=== PATIENT | female | born 1985 | race Caucasian/White ===

== ENCOUNTER 2017-10-24 16:29 | Emergency (ER) | payer OTHER ==
[~2017-10-24] VITALS: Ht 160 cm; Wt 165.1 kg
[~2017-10-24 16:29] MED LIST: ACCUNEB SO1.25 MG/1 INH; ADVAIR HFA115 MCG/21 INH; AMOXICILLIN 50500 M1 PO; AMOXICILLIN500 M1 PO; AMOXICILLIN875 MG PO; AUGMENTIN 500-1 EACH PO; AVELOX 400 MG400 MG PO; BACTRIM DS TAB1 EAC1 PO; BACTRIM DS TAB1 EACH PO; BIRTH CONTROL; BUTALB-APAP-CA1 EACH PO; CELEXA; CIPRO250 M1 PO; CIPRO500 MG PO; CIPROFLOXACIN500 M1 PO; CLEOCIN HCL150 MG PO; FIORICET 50-301 EACH PO; FLEXERIL PO; FUTURO RESTORI1 EACH MC; GLUCOPHAGE500 MG PO; HYDROCODONE-AP1 EAC6 PO; HYDROXYZINE HCL25 M1 PO; IBUPROFEN 800800 M1 PO; IMDUR 30 MG TAB30 M1 PO; KLOR-CON; LEVALBUTER1.25 MG/0. INH; LEVOTHYROXIN0.125 M1 PO; LEXAPRO 10 MG T10 M1 PO; LIDOCAINE VISC100 M1 SWISH&SPIT; MACROBID 100 M100 M1 PO; MAXZIDE-25 MG1 EACH PO; MEDROLDOSEPACK PO; METFORMIN HCL500 MG PO; NYSTATIN 100,0015 G1 TOP; NYSTATIN 100,0015 G1 TP; ONDANSETRON HCL4 M2 PO; PENICILLIN VK500 M1 PO; PENICILLIN VK500 MG PO; PERCOCET; PERCOCET 5-3251 EACH PO; PERCOCET PO; PHENERGAN 25 MG25 M1 PO; PREDNISONE 20 M20 M1 PO; PROAIR HFA8.5 GM IH; PROAIR HFA8.5 GM INH; PROMETHAZINE-D120 ML PO; PROVENTIL HFA6.7 G1 INH; ROBAXIN 750 MG750 MG PO; ROBAXIN500 MG PO; SYNTHROID25 MCG PO; TESSALON PERLE100 MG PO; TRAMADOL 50 MG50 MG PO; ULTRAM 50MG TAB50 MG PO; VENTOLIN HFA 1818 GM INH; VIBRAMYCIN 100100 M2 PO; VISTARIL 25 MG25 M1 OR; VISTARIL 25 MG25 M1 PO; ZANTAC 150MG T150 M1 PO; ZOFRAN4 MG PO; ZOLOFT25 MG PO; ZPAK PO; ZYRTEC 10 MG TA10 MG PO; [UNRECOGNIZED DRUG - REMARK]
[2017-10-24] MEDS ORDERED: ZOLOFT25 MG PO (16:50)
[2017-10-24] MEDS ORDERED: PRENATAL (16:51)
[2017-10-24] MEDS ORDERED: PENICILLIN VK250 MG PO (16:55)
[2017-10-24] MEDS ORDERED: ULTRAM 50MG TAB50 MG PO (16:56)
[2017-10-24 17:17] VITALS: BP 115/79
== END 2017-10-24 17:17 | disposition home or self-care (01) ==
LOC: M.ERS 16:29
DX: K04.7 Periapical abscess without sinus (principal); J45.909 Unspecified asthma, uncomplicated; E03.9 Hypothyroidism, unspecified; E66.9 Obesity, unspecified; Z87.440 Personal history of urinary (tract) infections; Z88.8 Allergy status to other drugs, medicaments and biological substances; Z88.5 Allergy status to narcotic agent; Z88.6 Allergy status to analgesic agent; Z88.1 Allergy status to other antibiotic agents

== ENCOUNTER 2017-10-26 10:12 | Emergency (ER) | payer OTHER ==
[~2017-10-26] VITALS: Ht 160 cm; Wt 165.1 kg
[~2017-10-26 10:12] MED LIST changes: +PENICILLIN VK250 MG PO; +PRENATAL
[2017-10-26] MEDS ORDERED: KEFLEX500 M1 PO (10:33)
[2017-10-26 10:40] VITALS: BP 156/82
== END 2017-10-26 10:41 | disposition home or self-care (01) ==
LOC: M.ERS 10:12
DX: T36.0X5A Adverse effect of penicillins, initial encounter (principal); K08.89 Other specified disorders of teeth and supporting structures; J45.909 Unspecified asthma, uncomplicated; E03.9 Hypothyroidism, unspecified; Z88.8 Allergy status to other drugs, medicaments and biological substances; Z88.0 Allergy status to penicillin; Z88.5 Allergy status to narcotic agent; Z88.1 Allergy status to other antibiotic agents; Y92.89 Other specified places as the place of occurrence of the external cause

== ENCOUNTER 2017-11-13 21:33 | Emergency (ER) | payer OTHER ==
[~2017-11-13] VITALS: Ht 160 cm; Wt 170.6 kg
[~2017-11-13 21:33] MED LIST changes: +KEFLEX500 M1 PO
[2017-11-13] MEDS ORDERED: VISTARIL50 MG PO (21:48)
[2017-11-13] MEDS ORDERED: CLARITIN10 M2 PO (22:04)
[2017-11-13 22:28] VITALS: BP 132/84
== END 2017-11-13 22:30 | disposition home or self-care (01) ==
LOC: M.ERS 21:33
DX: R21 Rash and other nonspecific skin eruption (principal); J45.909 Unspecified asthma, uncomplicated; E03.9 Hypothyroidism, unspecified; E66.9 Obesity, unspecified; Z87.440 Personal history of urinary (tract) infections; Z68.44 Body mass index [BMI] 60.0-69.9, adult; Z88.0 Allergy status to penicillin; Z88.5 Allergy status to narcotic agent; Z88.1 Allergy status to other antibiotic agents; Z88.8 Allergy status to other drugs, medicaments and biological substances

== ENCOUNTER 2017-11-26 18:36 | Emergency (ER) | payer OTHER ==
[~2017-11-26] VITALS: Ht 157.5 cm; Wt 167.8 kg
[~2017-11-26 18:36] MED LIST changes: +CLARITIN10 M2 PO; +VISTARIL50 MG PO
[2017-11-26 19:02] LABS: ABSOLUTE BASOPHILS 0.1 thou/uL (0.0-0.2); ABSOLUTE EOSINOPHILS 0.1 thou/uL (0.0-0.7); ABSOLUTE LYMPHOCYTES 2.8 thou/uL (0.8-5.3); ABSOLUTE MONOCYTES 0.7 thou/uL (0.0-1.2); ABSOLUTE NEUTROPHILS 9.7 thou/uL (1.6-8.1); BASOPHILS 0.5 %; EOSINOPHILS 0.6 %; HEMOGLOBIN 13.1 gm/dL (12.0-15.0); LYMPHOCYTES 20.6 %; MCH 26.3 pg (26.0-34.0); MCHC 32.8 g/dL (28.0-37.0); MCV 80.3 fL (80.0-100.0); MONOCYTES 5.5 %; MPV 8.3 fl. (7.2-11.1); NUCLEATED RBCS 0 /100WBC; PLATELET COUNT* 261 thou/uL (150-400); POLYS 72.8 %; RBC 4.98 mil/uL (4.20-5.00); RDW-CV 16.8 % (10.5-14.5); WBC 13.4 thou/uL (4.0-11.0)
[2017-11-26 19:06] LABS: URINE BILIRUBIN NEGATIVE (Negative); URINE BLOOD 3+ (Negative); URINE CLARITY SL CLOUDY; URINE COLOR YELLOW; URINE GLUCOSE-RANDOM NEGATIVE (Negative); URINE KETONES NEGATIVE (Negative); URINE LEUKOCYTES-REFLEX NEGATIVE (Negative); URINE NITRITE-REFLEX NEGATIVE (Negative); URINE PROTEIN TRACE (Negative); URINE SPECIFIC GRAVITY 1.025 (1.005-1.030); URINE UROBILINOGEN 0.2 E.U./dl (0.2-1.0)
[2017-11-26 19:12] LABS: SQUAMOUS >10 Many /LPF (0-3)
[2017-11-26 19:12] LABS: CALCIUM 9.6 mg/dL (8.5-10.1); POTASSIUM 3.8 mmol/L (3.5-5.1)
[2017-11-26 19:13] LABS: URINE RBC >20 Many /HPF (0-2); URINE WBC-REFLEX 0-5 Rare /HPF (0-5)
[2017-11-26 19:14] LABS: CASTS None Seen /LPF (None Seen); CRYSTALS None Seen /LPF (None Seen)
[2017-11-26 19:17] LABS: ALBUMIN 3.5 g/dL (3.4-5.0); TOTAL BILIRUBIN 0.6 mg/dL (<0.1-1.0)
[2017-11-26 20:58] VITALS: BP 125/68
== END 2017-11-26 21:05 | disposition home or self-care (01) ==
LOC: M.ERS 18:36
PROVIDERS: Physician Assistant
DX: R10.11 Right upper quadrant pain (principal); R10.13 Epigastric pain; J45.909 Unspecified asthma, uncomplicated; E03.9 Hypothyroidism, unspecified; E66.9 Obesity, unspecified; Z87.440 Personal history of urinary (tract) infections; Z68.44 Body mass index [BMI] 60.0-69.9, adult; Z88.6 Allergy status to analgesic agent; Z88.0 Allergy status to penicillin; Z88.8 Allergy status to other drugs, medicaments and biological substances; Z88.5 Allergy status to narcotic agent; Z88.1 Allergy status to other antibiotic agents

== ENCOUNTER 2017-12-12 13:20 | Emergency (ER) | payer OTHER, MEDICAID ==
[~2017-12-12] VITALS: Ht 162.6 cm; Wt 165.1 kg
[2017-12-12] MEDS ORDERED: REXULTI0.25 MG PO (13:31)
[2017-12-12 13:57] LABS: ABSOLUTE LYMPHOCYTES 2.2 thou/uL (0.8-5.3); ABSOLUTE NEUTROPHILS 8.4 thou/uL (1.6-8.1); BASOPHILS 0.4 %; EOSINOPHILS 0.4 %; HEMOGLOBIN 12.5 gm/dL (12.0-15.0); LYMPHOCYTES 18.9 %; MCH 27.2 pg (26.0-34.0); MCHC 32.8 g/dL (28.0-37.0); MCV 82.9 fL (80.0-100.0); MONOCYTES 8.7 %; MPV 8.4 fl. (7.2-11.1); NUCLEATED RBCS 0 /100WBC; PLATELET COUNT* 216 thou/uL (150-400); POLYS 71.6 %; RBC 4.58 mil/uL (4.20-5.00); WBC 11.8 thou/uL (4.0-11.0)
[2017-12-12 14:07] LABS: ANION GAP 8 mmol/L (7-16); BUN 8 mg/dL (7-18); CALCIUM 8.9 mg/dL (8.5-10.1); CHLORIDE 102 mmol/L (98-107); CO2 30 mmol/L (21-32); CREATININE 0.8 mg/dL (0.6-1.3); GLUCOSE 95 mg/dL (70-99); POTASSIUM 3.4 mmol/L (3.5-5.1); SODIUM 140 mmol/L (136-145)
[2017-12-12 14:09] LABS: APTT 25.9 Seconds (25.0-31.3)
[2017-12-12 14:23] LABS: ALBUMIN 3.1 g/dL (3.4-5.0); ALKALINE PHOSPHATASE 75 U/L (46-116); CK-MB MASS < 0.5 ng/mL (<0.5-3.6); LIPASE 112 U/L (73-393); NT-PRO BRAIN NAT PEPTIDE 75 pg/mL (<300); SGOT 21 U/L (15-37); SGPT 35 U/L (30-65); TOTAL BILIRUBIN 0.4 mg/dL (<0.1-1.0); TOTAL PROTEIN 7.1 g/dL (6.4-8.2); TROPONIN-I LEVEL <0.06 ng/mL (<0.06)
[2017-12-12 14:43] VITALS: BP 120/76
--- NOTE | 2017-12-13 14:27 | EKG ---
[place] [address] ELECTROCARDIOGRAM REPORT Name: RENEMILLIE Room: [facility]#: [id number] Admission: 12/12/17 Attend Phys: Discharge: 12/12/17 Date of : 83 Report #: [id number] THIS REPORT FOR: //name// [facility] ED Test Date: 2017-12-12 Test Time: 13:26:34 Pat Name: MILLIE RENE Department: Room: Gender: F Food Preparation Supervisor: GRISELDA : 1985 Requested By: Scott Lubin Order Number: [id number] MD: Evan Morales Measurements Intervals [place] Rate: 80 P: 44 VT: 146 QRS: 27 QRSD: 95 T: 30 QT: 359 QTc: 415 Interpretive Statements Sinus rhythm Compared to ECG 05/05/2017 13:55:33 No significant changes Electronically Signed On 12-13-2017 14:27:01 CDT by Evan Morales [email or web address] <ELECTRONICALLY SIGNED> By: Evan Morales MD, [facility] 12/13/17 1427 D: [id number] Evan Morales MD, FAC /EPI
== END 2017-12-12 14:44 | disposition home or self-care (01) ==
LOC: M.ERS 13:20
PROVIDERS: Family Medicine
DX: R07.89 Other chest pain (principal); J45.909 Unspecified asthma, uncomplicated; E03.9 Hypothyroidism, unspecified; E66.9 Obesity, unspecified; Z87.440 Personal history of urinary (tract) infections; Z88.6 Allergy status to analgesic agent; Z88.0 Allergy status to penicillin; Z88.5 Allergy status to narcotic agent; Z88.1 Allergy status to other antibiotic agents; Z68.44 Body mass index [BMI] 60.0-69.9, adult

== ENCOUNTER 2017-12-29 12:59 | Emergency (ER) | payer OTHER, MEDICAID ==
[~2017-12-29] VITALS: Ht 160 cm; Wt 165.1 kg
[~2017-12-29 12:59] MED LIST changes: +REXULTI0.25 MG PO
[2017-12-29 13:20] LABS: URINE BILIRUBIN NEGATIVE (Negative); URINE BLOOD 3+ (Negative); URINE CLARITY CLEAR; URINE COLOR YELLOW; URINE GLUCOSE-RANDOM NEGATIVE (Negative); URINE KETONES NEGATIVE (Negative); URINE LEUKOCYTES-REFLEX NEGATIVE (Negative); URINE NITRITE-REFLEX NEGATIVE (Negative); URINE PROTEIN TRACE (Negative); URINE UROBILINOGEN 0.2 E.U./dl (0.2-1.0)
[2017-12-29 13:29] LABS: SQUAMOUS 0-3 Few /LPF (0-3)
[2017-12-29 13:30] LABS: BACTERIA-REFLEX None Seen /HPF (None Seen); CASTS None Seen /LPF (None Seen); CRYSTALS None Seen /LPF (None Seen); URINE RBC >20 Many /HPF (0-2); URINE WBC-REFLEX None Seen /HPF (0-5)
[2017-12-29 13:42] LABS: ABSOLUTE MONOCYTES 0.5 thou/uL (0.0-1.2); ABSOLUTE NEUTROPHILS 7.7 thou/uL (1.6-8.1); BASOPHILS 0.4 %; EOSINOPHILS 0.4 %; HEMATOCRIT 37.5 % (37.0-47.0); HEMOGLOBIN 12.6 gm/dL (12.0-15.0); LYMPHOCYTES 19.6 %; MCH 28.5 pg (26.0-34.0); MCHC 33.5 g/dL (28.0-37.0); MCV 85.2 fL (80.0-100.0); MONOCYTES 5.2 %; MPV 8.3 fl. (7.2-11.1); NUCLEATED RBCS 0 /100WBC; PLATELET COUNT* 206 thou/uL (150-400); POLYS 74.4 %; RDW-CV 21.1 % (10.5-14.5); WBC 10.4 thou/uL (4.0-11.0)
[2017-12-29 14:20] VITALS: BP 124/82
[2017-12-29 14:57] LABS: PLATELET ESTIMATE ADEQUATE
[2017-12-29 14:58] LABS: ANISOCYTOSIS 2+; LARGE PLATELETS OCCASIONAL
== END 2017-12-29 14:23 | disposition home or self-care (01) ==
LOC: M.ERS 12:59
PROVIDERS: Nurse Practitioner Family
DX: N93.8 Other specified abnormal uterine and vaginal bleeding (principal); J45.909 Unspecified asthma, uncomplicated; E03.9 Hypothyroidism, unspecified; E66.9 Obesity, unspecified; Z87.440 Personal history of urinary (tract) infections; Z88.8 Allergy status to other drugs, medicaments and biological substances; Z88.0 Allergy status to penicillin; Z88.6 Allergy status to analgesic agent; Z88.5 Allergy status to narcotic agent; Z88.1 Allergy status to other antibiotic agents

== ENCOUNTER 2018-01-30 19:16 | Emergency (ER) | payer OTHER, MEDICAID ==
[~2018-01-30] VITALS: Ht 157.5 cm; Wt 164.2 kg
[2018-01-30 19:49] LABS: URINE BILIRUBIN NEGATIVE (Negative); URINE BLOOD 3+ (Negative); URINE CLARITY CLEAR; URINE COLOR YELLOW; URINE GLUCOSE-RANDOM NEGATIVE (Negative); URINE KETONES NEGATIVE (Negative); URINE LEUKOCYTES-REFLEX TRACE (Negative); URINE NITRITE-REFLEX NEGATIVE (Negative); URINE PROTEIN NEGATIVE (Negative); URINE UROBILINOGEN 0.2 E.U./dl (0.2-1.0)
[2018-01-30 19:56] LABS: BACTERIA-REFLEX None Seen /HPF (None Seen); SQUAMOUS >10 Many /LPF (0-3); URINE RBC 0-2 Rare /HPF (0-2); URINE WBC-REFLEX 0-5 Rare /HPF (0-5)
[2018-01-30 19:57] LABS: CASTS None Seen /LPF (None Seen); CRYSTALS None Seen /LPF (None Seen)
[2018-01-30 20:10] LABS: ABSOLUTE BASOPHILS 0.1 thou/uL (0.0-0.2); ABSOLUTE EOSINOPHILS 0.1 thou/uL (0.0-0.7); ABSOLUTE LYMPHOCYTES 2.4 thou/uL (0.8-5.3); ABSOLUTE MONOCYTES 0.9 thou/uL (0.0-1.2); ABSOLUTE NEUTROPHILS 8.6 thou/uL (1.6-8.1); BASOPHILS 0.7 %; EOSINOPHILS 0.4 %; HEMATOCRIT 40.7 % (37.0-47.0); HEMOGLOBIN 13.7 gm/dL (12.0-15.0); LYMPHOCYTES 19.8 %; MCHC 33.7 g/dL (28.0-37.0); MCV 86.1 fL (80.0-100.0); MONOCYTES 7.6 %; MPV 8.6 fl. (7.2-11.1); NUCLEATED RBCS 0 /100WBC; PLATELET COUNT* 252 thou/uL (150-400); POLYS 71.5 %; RBC 4.73 mil/uL (4.20-5.00); RDW-CV 17.6 % (10.5-14.5)
[2018-01-30 20:17] LABS: CREATININE 1.1 mg/dL (0.6-1.3); POTASSIUM 3.8 mmol/L (3.5-5.1)
[2018-01-30 20:54] VITALS: BP 132/82
== END 2018-01-30 20:54 | disposition home or self-care (01) ==
LOC: M.ERS 19:16
PROVIDERS: Emergency Medicine
DX: N92.6 Irregular menstruation, unspecified (principal); J45.909 Unspecified asthma, uncomplicated; E03.9 Hypothyroidism, unspecified; E66.9 Obesity, unspecified; Z87.440 Personal history of urinary (tract) infections; Z88.6 Allergy status to analgesic agent; Z88.8 Allergy status to other drugs, medicaments and biological substances; Z88.0 Allergy status to penicillin; Z88.1 Allergy status to other antibiotic agents; Z88.5 Allergy status to narcotic agent

== ENCOUNTER 2018-02-04 17:24 | Emergency (ER) | payer OTHER, MEDICAID ==
[~2018-02-04] VITALS: Ht 157.5 cm; Wt 163.3 kg
[2018-02-04 18:23] VITALS: BP 143/69
== END 2018-02-04 18:24 | disposition home or self-care (01) ==
LOC: M.ERS 17:24
DX: S90.32XA Contusion of left foot, initial encounter (principal); J45.909 Unspecified asthma, uncomplicated; E03.9 Hypothyroidism, unspecified; E66.9 Obesity, unspecified; Z68.44 Body mass index [BMI] 60.0-69.9, adult; Z88.5 Allergy status to narcotic agent; Z88.1 Allergy status to other antibiotic agents; Z88.0 Allergy status to penicillin; X58.XXXA Exposure to other specified factors, initial encounter; Y93.89 Activity, other specified; Y92.89 Other specified places as the place of occurrence of the external cause; Y99.8 Other external cause status

== ENCOUNTER 2018-03-21 19:37 | Emergency (ER) | payer OTHER, MEDICAID ==
[~2018-03-21] VITALS: Ht 157.5 cm; Wt 158.5 kg
[2018-03-21 20:42] LABS: URINE BLOOD TRACE (Negative); URINE CLARITY SL CLOUDY; URINE COLOR YELLOW; URINE GLUCOSE-RANDOM NEGATIVE (Negative); URINE KETONES TRACE (Negative); URINE LEUKOCYTES 2+ (Negative); URINE NITRITE NEGATIVE (Negative); URINE PROTEIN 1+ (Negative); URINE SPECIFIC GRAVITY 1.025 (1.005-1.030)
[2018-03-21 20:44] LABS: URINE BILIRUBIN 2+ (Negative)
[2018-03-21 20:46] LABS: ICTOTEST (BILI CONFIRMATORY) Negative (Negative)
[2018-03-21 20:48] LABS: SQUAMOUS >10 Many /LPF (0-3)
[2018-03-21 20:49] LABS: MUCUS >6 Heavy strn/LPF (None Seen)
[2018-03-21 20:50] LABS: CASTS None Seen /LPF (None Seen); CRYSTALS None Seen /LPF (None Seen); URINE WBC 6-15 Few /HPF (0-5)
[2018-03-21 20:51] LABS: URINE RBC 0-2 Rare /HPF (0-2)
[2018-03-21 20:56] LABS: ABSOLUTE BASOPHILS 0.1 thou/uL (0.0-0.2); ABSOLUTE EOSINOPHILS 0.1 thou/uL (0.0-0.7); ABSOLUTE LYMPHOCYTES 2.5 thou/uL (0.8-5.3); ABSOLUTE MONOCYTES 0.9 thou/uL (0.0-1.2); ABSOLUTE NEUTROPHILS 5.9 thou/uL (1.6-8.1); BASOPHILS 1.1 %; EOSINOPHILS 0.9 %; HEMATOCRIT 39.9 % (37.0-47.0); HEMOGLOBIN 13.7 gm/dL (12.0-15.0); LYMPHOCYTES 26.4 %; MCH 30.4 pg (26.0-34.0); MCHC 34.3 g/dL (28.0-37.0); MCV 88.4 fL (80.0-100.0); MONOCYTES 9.4 %; MPV 8.9 fl. (7.2-11.1); NUCLEATED RBCS 0 /100WBC; PLATELET COUNT* 222 thou/uL (150-400); POLYS 62.2 %; RBC 4.51 mil/uL (4.20-5.00); RDW-CV 13.6 % (10.5-14.5); WBC 9.5 thou/uL (4.0-11.0)
[2018-03-21 21:01] LABS: POTASSIUM 3.6 mmol/L (3.5-5.1)
[2018-03-21 21:06] LABS: ALBUMIN 3.1 g/dL (3.4-5.0); TOTAL BILIRUBIN 1.1 mg/dL (<0.1-1.0)
[2018-03-21] MEDS ORDERED: BACTRIM DS TAB1 EACH PO (23:07)
[2018-03-21 23:30] VITALS: BP 130/74
== END 2018-03-21 23:32 | disposition home or self-care (01) ==
LOC: M.ERS 19:37
PROVIDERS: Physician Assistant
DX: N39.0 Urinary tract infection, site not specified (principal); J45.909 Unspecified asthma, uncomplicated; E03.9 Hypothyroidism, unspecified; E66.9 Obesity, unspecified; Z68.44 Body mass index [BMI] 60.0-69.9, adult; Z88.0 Allergy status to penicillin; Z88.1 Allergy status to other antibiotic agents; Z88.5 Allergy status to narcotic agent; Z88.8 Allergy status to other drugs, medicaments and biological substances

== ENCOUNTER 2018-03-27 19:43 | Emergency (ER) | payer OTHER, MEDICAID ==
[~2018-03-27] VITALS: Ht 157.5 cm; Wt 154.2 kg
[2018-03-27 20:19] LABS: ABSOLUTE BASOPHILS 0.1 thou/uL (0.0-0.2); ABSOLUTE EOSINOPHILS 0.1 thou/uL (0.0-0.7); ABSOLUTE LYMPHOCYTES 2.1 thou/uL (0.8-5.3); ABSOLUTE MONOCYTES 0.6 thou/uL (0.0-1.2); BASOPHILS 0.8 %; EOSINOPHILS 0.9 %; HEMATOCRIT 41.7 % (37.0-47.0); LYMPHOCYTES 24.3 %; MCH 29.7 pg (26.0-34.0); MCHC 33.5 g/dL (28.0-37.0); MCV 88.8 fL (80.0-100.0); MONOCYTES 6.4 %; NUCLEATED RBCS 0 /100WBC; PLATELET COUNT* 244 thou/uL (150-400); POLYS 67.6 %; RDW-CV 13.2 % (10.5-14.5); WBC 8.8 thou/uL (4.0-11.0)
[2018-03-27 20:20] LABS: URINE BILIRUBIN NEGATIVE (Negative); URINE BLOOD 3+ (Negative); URINE CLARITY CLEAR; URINE COLOR YELLOW; URINE GLUCOSE-RANDOM NEGATIVE (Negative); URINE KETONES NEGATIVE (Negative); URINE LEUKOCYTES-REFLEX NEGATIVE (Negative); URINE NITRITE-REFLEX NEGATIVE (Negative); URINE PROTEIN NEGATIVE (Negative); URINE SPECIFIC GRAVITY <= 1.005 (1.005-1.030); URINE UROBILINOGEN 0.2 E.U./dl (0.2-1.0)
[2018-03-27 20:25] LABS: CASTS None Seen /LPF (None Seen); CRYSTALS None Seen /LPF (None Seen); MUCUS None Seen strn/LPF (None Seen); SQUAMOUS >10 Many /LPF (0-3)
[2018-03-27 20:27] LABS: BACTERIA-REFLEX None Seen /HPF (None Seen); URINE RBC 3-10 Few /HPF (0-2); URINE WBC-REFLEX None Seen /HPF (0-5)
[2018-03-27 20:30] LABS: CALCIUM 9.5 mg/dL (8.5-10.1)
[2018-03-27 20:32] LABS: ACETAMINOPHEN < 2 ug/mL (10-30); ALCOHOL < 10 mg/dL (<10); AMP/METHAMP Negative (Negative); BARBITURATES Negative (Negative); BENZODIAZEPINES Negative (Negative); COCAINE Negative (Negative); METHADONE Negative (Negative); OPIATES Negative (Negative); PCP Negative (Negative); THC Negative (Negative)
[2018-03-27 20:33] LABS: SALICYLATE < 2.8 mg/dL (2.8-20.0)
[2018-03-27 20:35] LABS: ALBUMIN 3.4 g/dL (3.4-5.0); TOTAL BILIRUBIN 0.9 mg/dL (<0.1-1.0); TOTAL PROTEIN 7.6 g/dL (6.4-8.2)
[2018-03-27 22:10] VITALS: BP 138/94
== END 2018-03-27 22:10 | disposition home or self-care (01) ==
LOC: M.ERS 19:43
PROVIDERS: Emergency Medicine
DX: R45.851 Suicidal ideations (principal); J45.909 Unspecified asthma, uncomplicated; E03.9 Hypothyroidism, unspecified; E66.9 Obesity, unspecified; Z68.44 Body mass index [BMI] 60.0-69.9, adult; Z88.0 Allergy status to penicillin; Z88.5 Allergy status to narcotic agent; Z88.1 Allergy status to other antibiotic agents; Z88.8 Allergy status to other drugs, medicaments and biological substances

== ENCOUNTER 2018-04-07 16:27 | Emergency (ER) | payer OTHER, MEDICAID ==
[~2018-04-07] VITALS: Ht 160 cm; Wt 152.4 kg
[2018-04-07 17:51] VITALS: BP 142/98
== END 2018-04-07 17:52 | disposition home or self-care (01) ==
LOC: M.ERS 16:27
DX: S80.11XA Contusion of right lower leg, initial encounter (principal); J45.909 Unspecified asthma, uncomplicated; E03.9 Hypothyroidism, unspecified; E66.9 Obesity, unspecified; Z68.43 Body mass index [BMI] 50.0-59.9, adult; Z87.440 Personal history of urinary (tract) infections; Z88.0 Allergy status to penicillin; Z88.1 Allergy status to other antibiotic agents; Z88.5 Allergy status to narcotic agent; Z88.8 Allergy status to other drugs, medicaments and biological substances; X58.XXXA Exposure to other specified factors, initial encounter; Y93.89 Activity, other specified; Y92.89 Other specified places as the place of occurrence of the external cause; Y99.8 Other external cause status

== ENCOUNTER 2018-04-15 11:12 | Emergency (ER) | payer OTHER, MEDICAID ==
[~2018-04-15] VITALS: Ht 165.1 cm; Wt 104.3 kg
[2018-04-15 12:42] VITALS: BP 143/80
== END 2018-04-15 12:43 | disposition home or self-care (01) ==
LOC: M.ERS 11:12
DX: S63.501A Unspecified sprain of right wrist, initial encounter (principal); J45.909 Unspecified asthma, uncomplicated; E03.9 Hypothyroidism, unspecified; E66.9 Obesity, unspecified; Z68.38 Body mass index [BMI] 38.0-38.9, adult; Z87.440 Personal history of urinary (tract) infections; Z88.0 Allergy status to penicillin; Z88.1 Allergy status to other antibiotic agents; Z88.5 Allergy status to narcotic agent; Z88.8 Allergy status to other drugs, medicaments and biological substances; W18.39XA Other fall on same level, initial encounter; Y93.89 Activity, other specified; Y92.89 Other specified places as the place of occurrence of the external cause; Y99.8 Other external cause status

== ENCOUNTER 2018-07-13 13:57 | Emergency (ER) | payer OTHER, MEDICAID ==
[~2018-07-13] VITALS: Ht 160 cm; Wt 140.6 kg
[2018-07-13] MEDS ORDERED: IBUPROFEN 800800 M1 PO (14:54)
[2018-07-13] MEDS ORDERED: PHENERGAN 25 MG25 M1 PO (14:55)
[2018-07-13 15:07] VITALS: BP 140/62
== END 2018-07-13 15:08 | disposition home or self-care (01) ==
LOC: M.ERS 13:57
DX: S09.8XXA Other specified injuries of head, initial encounter (principal); J45.909 Unspecified asthma, uncomplicated; E03.9 Hypothyroidism, unspecified; E66.9 Obesity, unspecified; Z68.43 Body mass index [BMI] 50.0-59.9, adult; Z87.440 Personal history of urinary (tract) infections; Z88.1 Allergy status to other antibiotic agents; Z88.0 Allergy status to penicillin; Z88.5 Allergy status to narcotic agent; Z88.8 Allergy status to other drugs, medicaments and biological substances; V49.69XA Unspecified car occupant injured in collision with other motor vehicles in traffic accident, initial encounter; Y93.89 Activity, other specified; Y92.89 Other specified places as the place of occurrence of the external cause; Y99.8 Other external cause status

== ENCOUNTER 2018-09-18 20:26 | Emergency (ER) | payer OTHER ==
[~2018-09-18] VITALS: Ht 160 cm; Wt 129.7 kg
[2018-09-18] MEDS ORDERED: HYDROCHLOROTHIAZIDE (20:39)
[2018-09-18 20:50] LABS: URINE BILIRUBIN NEGATIVE (Negative); URINE BLOOD NEGATIVE (Negative); URINE CLARITY CLEAR; URINE COLOR YELLOW; URINE GLUCOSE-RANDOM NEGATIVE (Negative); URINE KETONES NEGATIVE (Negative); URINE NITRITE-REFLEX NEGATIVE (Negative); URINE PROTEIN NEGATIVE (Negative); URINE UROBILINOGEN >= 8.0 E.U./dl (0.2-1.0)
[2018-09-18 20:52] LABS: URINE LEUKOCYTES-REFLEX 2+ (Negative)
[2018-09-18 21:03] LABS: MUCUS None Seen strn/LPF (None Seen); SQUAMOUS 4-10 Moderate /LPF (0-3)
[2018-09-18 21:04] LABS: CASTS None Seen /LPF (None Seen); URINE WBC-REFLEX 6-15 Few /HPF (0-5)
[2018-09-18 21:05] LABS: BACTERIA-REFLEX 1-9 Few /HPF (None Seen); CRYSTALS None Seen /LPF (None Seen); URINE RBC None Seen /HPF (0-2)
[2018-09-18 21:58] LABS: ABSOLUTE BASOPHILS 0.1 thou/uL (0.0-0.2); ABSOLUTE EOSINOPHILS 0.1 thou/uL (0.0-0.7); ABSOLUTE MONOCYTES 0.6 thou/uL (0.0-1.2); ABSOLUTE NEUTROPHILS 5.4 thou/uL (1.6-8.1); BASOPHILS 0.9 %; HEMATOCRIT 36.9 % (37.0-47.0); HEMOGLOBIN 12.6 gm/dL (12.0-15.0); LYMPHOCYTES 24.8 %; MCH 31.5 pg (26.0-34.0); MCHC 34.2 g/dL (28.0-37.0); MCV 92.2 fL (80.0-100.0); MPV 8.5 fl. (7.2-11.1); NUCLEATED RBCS 0 /100WBC; PLATELET COUNT* 248 thou/uL (150-400); POLYS 66.3 %; RDW-CV 17.3 % (10.5-14.5); WBC 8.2 thou/uL (4.0-11.0)
[2018-09-18 22:14] LABS: ALBUMIN 3.3 g/dL (3.4-5.0); CALCIUM 9.3 mg/dL (8.5-10.1); CREATININE 0.8 mg/dL (0.6-1.3); POTASSIUM 3.8 mmol/L (3.5-5.1); TOTAL PROTEIN 7.5 g/dL (6.4-8.2)
[2018-09-18] MEDS ORDERED: BACTRIM DS TAB1 EACH PO (23:25)
[2018-09-18] MEDS ORDERED: ZOFRAN ODT4 MG PO (23:25)
[2018-09-18 23:41] VITALS: BP 105/53
== END 2018-09-18 23:25 | disposition home or self-care (01) ==
LOC: M.ERS 20:26
PROVIDERS: Nurse Practitioner Family
DX: N39.0 Urinary tract infection, site not specified (principal); K59.9 Functional intestinal disorder, unspecified; K31.9 Disease of stomach and duodenum, unspecified; J45.909 Unspecified asthma, uncomplicated; E03.9 Hypothyroidism, unspecified; E66.9 Obesity, unspecified; Z68.43 Body mass index [BMI] 50.0-59.9, adult; Z90.49 Acquired absence of other specified parts of digestive tract; Z88.0 Allergy status to penicillin; Z88.1 Allergy status to other antibiotic agents; Z88.5 Allergy status to narcotic agent; Z88.8 Allergy status to other drugs, medicaments and biological substances

== ENCOUNTER 2018-10-16 11:54 | Observation (INO) | payer OTHER ==
[~2018-10-16] VITALS: Ht 160 cm; Wt 116.1 kg
[~2018-10-16 11:54] MED LIST changes: +HYDROCHLOROTHIAZIDE PO; +ZOFRAN ODT4 MG PO
[2018-10-16 12:24] LABS: HEMATOCRIT 37.6 % (37.0-47.0); HEMOGLOBIN 12.7 gm/dL (12.0-15.0); MCH 31.4 pg (26.0-34.0); MCHC 33.8 g/dL (28.0-37.0); MCV 92.8 fL (80.0-100.0); MPV 8.6 fl. (7.2-11.1); RBC 4.05 mil/uL (4.20-5.00); RDW-CV 14.7 % (10.5-14.5); WBC 8.3 thou/uL (4.0-11.0)
[2018-10-16 12:29] LABS: CALCIUM 9.5 mg/dL (8.5-10.1); CREATININE 0.8 mg/dL (0.6-1.3); POTASSIUM 3.9 mmol/L (3.5-5.1)
[2018-10-16] MEDS ORDERED: NEURONTIN300 MG PO (12:53)
--- NOTE | 2018-10-16 15:38 | EKG ---
[place] [address] ELECTROCARDIOGRAM REPORT Name: EDGARDMILLIE HARINI Room: [facility]#: [id number] Admission: 10/16/18 Attend Phys: Olu Art II Discharge: Date of : 83 Report #: [id number] THIS REPORT FOR: //name// [facility] Test Date: 2018-10-16 Test Time: 12:22:50 Pat Name: MILLIE RENE Department: Room: Gender: F Chemical Lab Supervisor: : 1985 Requested By: Olu Art Order Number: [id number] Rosanne MD: Stepan Wylie Measurements Intervals [place] Rate: 74 P: 53 [place]: 136 QRS: 16 QRSD: 98 T: 9 QT: 400 QTc: 444 Interpretive Statements Sinus rhythm early transition Compared to ECG 12/12/2017 13:26:34 No significant changes Electronically Signed On 10-16-2018 15:38:10 [employer] by Stepan Wylie [email or web address] <ELECTRONICALLY SIGNED> By: Stepan Wylie MD, [facility] 10/16/18 1538 1222 1222 Stepan Wylie MD, FACC /EPI
[2018-10-16 21:30] VITALS: BP 134/77
--- NOTE | 2018-10-17 04:59 | NUR ---
PATIENT ARRIVED ON UNIT AT APPROX 2130. ADMISSION ASSESSMENT COMPLETED AND PATIENT ORIENTED TO THE ROOM AND THE UNIT. NO COMPLAINTS OF PAIN NOTED. BENADRYL GIVEN AT APPROX 2300 AND PATIENT HAS REMAINED SLEEPING SINCE THEN. HOURLY ROUNDING COMPLETED CHARTED. DRESSING C/D/I
[2018-10-17 12:09] VITALS: BP 123/77
[2018-10-17 12:29] VITALS: BP 123/77
[2018-10-17] MEDS ORDERED: BENADRYL25 MG PO (12:35)
[2018-10-17 12:43] VITALS: BP 123/77
[2018-10-17] MEDS ORDERED: NORCO 5-325 TA1 EACH PO (12:46)
--- NOTE | 2018-10-17 12:56 | NUR ---
PATIENT LEFT UNIT BY WHEELCHAIR WITH NURSING STAFF AT 1250. IV DC'D. EDUCATED PATIENT ON NEW MED SCRIPTS AND DISCHARGE INSTRUCTIONS. PATIENT VERBALIZED UNDERSTANDING. ALL BELONGINGS LEFT WITH PATIENT.
[2018-10-17 14:14] VITALS: BP 123/77
--- NOTE | 2018-10-20 10:35 | OP ---
[address] [address] OPERATIVE REPORT Name: MILLIE RENE Room: [address] Fredo.Sahra#: [id number] Admission: 10/16/18 Attend Phys: Young Gonzalez Discharge: 10/17/18 Date of : 83 Report #: [id number] THIS REPORT FOR: //name// CC: Shira De Luna DATE OF SERVICE: 10/16/2018 PREOPERATIVE DIAGNOSIS: Right knee medial meniscus tear. POSTOPERATIVE DIAGNOSES: 1. Right knee medial meniscus tear. 2. Grade 3 chondromalacia, patellofemoral groove. PROCEDURES PERFORMED: 1. Right knee arthroscopic surgery with partial medial meniscectomy. 2. Abrasion chondroplasty down to bleeding bone, patellofemoral groove. SURGEON: Olu Art II, DO. DROP MACHINE OPERATOR: HERIBERTO Moreland. ANESTHESIA: Per operative record. ESTIMATED BLOOD LOSS: Minimal. ANTIBIOTICS: Per operative record. DRAINS: None. COMPLICATIONS: None. CONDITION OF THE PATIENT: Stable to recovery room. DESCRIPTION OF PROCEDURE: The patient was taken to the operating suite, placed supine on the operating table and given appropriate anesthesia. The patient's right knee was sterilely prepped and draped. Surgery began with medial lateral portal incision. The arthroscope was advanced to the joint. There was found to be a posterior horn medial meniscus tear, which was tender around the medial margin. This was debrided utilizing basket and shaver back to good stable margins and then smoothed using Coblation wand in appropriate fashion. Lateral meniscus was probed and found to be intact. There was noted to be grade 3 chondromalacia to the patellofemoral groove. Utilizing the shaver, loose cartilage around the edges was removed and then abrasion chondroplasty was performed down to the bleeding bone in appropriate fashion. It was then smoothed using Coblation wand in appropriate fashion. ACL [place] [address] OPERATIVE REPORT Name: MILLIE RENEN [id number] Admission: 10/16/18 Attend Phys: Young Gonzalez Discharge: 10/17/18 Date of : 83 Report #: [id number] The medial lateral collateral ligaments were intact. The knee was then drained of arthroscopic fluid, closed with a 4-0 nylon in simple fashion. Dermabond and sterile dressing was applied. The patient transported to the recovery room in stable condition. Counts were correct throughout the procedure. <ELECTRONICALLY SIGNED> By: Olu Art II, DO 10/20/18 1035 0840 0931Olu Art II, DO /nt
== END 2018-10-17 14:00 | disposition home or self-care (01) ==
LOC: M.SUR 11:54 → M.ORTHSURG 18:35 → M.TBA-ER 18:35 → M.ORTHSURG 18:52
PROVIDERS: Orthopaedic Surgery; ADMIT Internal Medicine
DX: R22.0 Localized swelling, mass and lump, head (principal); T41.45XA Adverse effect of unspecified anesthetic, initial encounter; F32.9 Major depressive disorder, single episode, unspecified; M81.0 Age-related osteoporosis without current pathological fracture; E07.9 Disorder of thyroid, unspecified; Y92.89 Other specified places as the place of occurrence of the external cause; Z79.899 Other long term (current) drug therapy

== ENCOUNTER 2018-10-31 17:32 | Emergency (ER) | payer OTHER ==
[~2018-10-31] VITALS: Ht 160 cm; Wt 123.8 kg
[~2018-10-31 17:32] MED LIST changes: +BENADRYL25 MG PO; +NEURONTIN300 MG PO; +NORCO 5-325 TA1 EACH PO
[2018-10-31 18:24] LABS: ABSOLUTE LYMPHOCYTES 2.1 thou/uL (0.8-5.3); ABSOLUTE MONOCYTES 0.6 thou/uL (0.0-1.2); ABSOLUTE NEUTROPHILS 4.7 thou/uL (1.6-8.1); BASOPHILS 0.4 %; EOSINOPHILS 0.6 %; HEMATOCRIT 34.8 % (37.0-47.0); HEMOGLOBIN 11.9 gm/dL (12.0-15.0); LYMPHOCYTES 27.9 %; MCH 31.1 pg (26.0-34.0); MCHC 34.2 g/dL (28.0-37.0); MCV 91.1 fL (80.0-100.0); MONOCYTES 7.8 %; MPV 7.6 fl. (7.2-11.1); NUCLEATED RBCS 0 /100WBC; PLATELET COUNT* 256 thou/uL (150-400); POLYS 63.3 %; RBC 3.82 mil/uL (4.20-5.00); RDW-CV 14.2 % (10.5-14.5); WBC 7.5 thou/uL (4.0-11.0)
[2018-10-31 18:42] LABS: ALBUMIN 3.3 g/dL (3.4-5.0); CALCIUM 9.2 mg/dL (8.5-10.1); CREATININE 0.9 mg/dL (0.6-1.3); POTASSIUM 3.8 mmol/L (3.5-5.1); TOTAL BILIRUBIN 0.9 mg/dL (<0.1-1.0)
[2018-10-31 19:36] VITALS: BP 107/62
== END 2018-10-31 19:36 | disposition home or self-care (01) ==
LOC: M.ERS 17:32
PROVIDERS: Physician Assistant
DX: R60.0 Localized edema (principal); Z88.8 Allergy status to other drugs, medicaments and biological substances; Z88.0 Allergy status to penicillin; Z88.1 Allergy status to other antibiotic agents; Z88.5 Allergy status to narcotic agent; Z90.49 Acquired absence of other specified parts of digestive tract; Z90.89 Acquired absence of other organs; Z86.718 Personal history of other venous thrombosis and embolism

== ENCOUNTER 2018-11-16 12:51 | Emergency (ER) | payer OTHER ==
[~2018-11-16] VITALS: Ht 160 cm; Wt 118.8 kg
[2018-11-16] MEDS ORDERED: BIRTH CONTROL (13:06)
[2018-11-16] MEDS ORDERED: HYDROCHLOROTHIA25 M2 PO (13:06)
[2018-11-16] MEDS ORDERED: SYNTHROID100 MC1 (13:07)
[2018-11-16] MEDS ORDERED: IBUPROFEN 800800 M1 PO (14:01)
[2018-11-16 14:14] VITALS: BP 107/65
== END 2018-11-16 14:16 | disposition home or self-care (01) ==
LOC: M.ERS 12:51
DX: S90.02XA Contusion of left ankle, initial encounter (principal); Z90.49 Acquired absence of other specified parts of digestive tract; Z98.890 Other specified postprocedural states; Z88.1 Allergy status to other antibiotic agents; Z88.0 Allergy status to penicillin; Z88.8 Allergy status to other drugs, medicaments and biological substances; W22.8XXA Striking against or struck by other objects, initial encounter; Y93.89 Activity, other specified; Y92.89 Other specified places as the place of occurrence of the external cause; Y99.8 Other external cause status

== ENCOUNTER 2018-11-23 12:12 | Emergency (ER) | payer OTHER ==
[~2018-11-23] VITALS: Ht 160 cm; Wt 118.8 kg
[~2018-11-23 12:12] MED LIST changes: +HYDROCHLOROTHIA25 M2 PO; +SYNTHROID100 MC1
[2018-11-23 13:24] VITALS: BP 119/69
== END 2018-11-23 13:24 | disposition home or self-care (01) ==
LOC: M.ERS 12:12
DX: M25.572 Pain in left ankle and joints of left foot (principal); Z90.49 Acquired absence of other specified parts of digestive tract; Z98.890 Other specified postprocedural states; Z88.1 Allergy status to other antibiotic agents; Z88.0 Allergy status to penicillin; Z88.5 Allergy status to narcotic agent; Z88.8 Allergy status to other drugs, medicaments and biological substances

== ENCOUNTER 2018-11-26 13:10 | Emergency (ER) | payer OTHER ==
[~2018-11-26] VITALS: Ht 160 cm; Wt 122.0 kg
[2018-11-26] MEDS ORDERED: HYDROCHLOROTH12.5 M1 PO (13:18)
[2018-11-26] MEDS ORDERED: ADVAIR HFA 230M12 GM INH (13:18)
[2018-11-26] MEDS ORDERED: ACETAMINOPHEN-1 EAC1 PO (13:18)
[2018-11-26] MEDS ORDERED: NEURONTIN 300300 M1 PO (13:18)
[2018-11-26] MEDS ORDERED: SYNTHROID100 MC1 PO (13:19)
[2018-11-26] MEDS ORDERED: HYDROXYZINE HCL25 M2 PO (13:19)
[2018-11-26] MEDS ORDERED: NORCO 5-325 TA1 EACH PO (13:19)
[2018-11-26] MEDS ORDERED: IBUPROFEN 800800 M1 PO (13:19)
[2018-11-26] MEDS ORDERED: METFORMIN HCL500 MG PO (13:20)
[2018-11-26] MEDS ORDERED: MOBIC7.5 MG PO (13:20)
[2018-11-26] MEDS ORDERED: LEVALBUTER1.25 MG/0. INH (13:21)
[2018-11-26] MEDS ORDERED: ACID REDUCER20 M1 PO (13:21)
[2018-11-26] MEDS ORDERED: ZOLOFT25 MG PO (13:21)
[2018-11-26] MEDS ORDERED: SPRINTEC1 EACH PO (13:21)
[2018-11-26] MEDS ORDERED: PROVIDA OB CAP1 EACH PO (13:21)
[2018-11-26 13:49] LABS: ABSOLUTE LYMPHOCYTES 0.9 thou/uL (0.8-5.3); ABSOLUTE MONOCYTES 0.4 thou/uL (0.0-1.2); ABSOLUTE NEUTROPHILS 4.3 thou/uL (1.6-8.1); BASOPHILS 0.7 %; EOSINOPHILS 0.7 %; HEMATOCRIT 32.1 % (37.0-47.0); HEMOGLOBIN 10.9 gm/dL (12.0-15.0); LYMPHOCYTES 15.6 %; MCH 30.7 pg (26.0-34.0); MCHC 34.1 g/dL (28.0-37.0); MCV 90.2 fL (80.0-100.0); MONOCYTES 6.7 %; MPV 7.1 fl. (7.2-11.1); NUCLEATED RBCS 0 /100WBC; PLATELET COUNT* 201 thou/uL (150-400); POLYS 76.3 %; RBC 3.56 mil/uL (4.20-5.00); RDW-CV 14.2 % (10.5-14.5); WBC 5.6 thou/uL (4.0-11.0)
[2018-11-26 14:04] LABS: URINE BLOOD 1+ (Negative); URINE CLARITY CLEAR; URINE COLOR YELLOW; URINE GLUCOSE-RANDOM NEGATIVE (Negative); URINE KETONES 1+ (Negative); URINE LEUKOCYTES-REFLEX NEGATIVE (Negative); URINE NITRITE-REFLEX NEGATIVE (Negative); URINE PROTEIN TRACE (Negative)
[2018-11-26 14:05] LABS: ICTOTEST (BILI CONFIRMATORY) Negative (Negative); URINE BILIRUBIN 1+ (Negative)
[2018-11-26 14:12] LABS: BACTERIA-REFLEX 1-9 Few /HPF (None Seen); CASTS None Seen /LPF (None Seen); CRYSTALS None Seen /LPF (None Seen); MUCUS 4-6 Moderate strn/LPF (None Seen); SQUAMOUS 0-3 Few /LPF (0-3); URINE RBC 3-10 Few /HPF (0-2); URINE WBC-REFLEX 0-5 Rare /HPF (0-5)
[2018-11-26 14:23] LABS: ALBUMIN 3.1 g/dL (3.4-5.0); ALKALINE PHOSPHATASE 64 U/L (46-116); ANION GAP 8 mmol/L (7-16); BUN 8 mg/dL (7-18); CALCIUM 8.7 mg/dL (8.5-10.1); CHLORIDE 101 mmol/L (98-107); CO2 31 mmol/L (21-32); CREATININE 0.9 mg/dL (0.6-1.3); GLUCOSE 104 mg/dL (70-99); POTASSIUM 3.2 mmol/L (3.5-5.1); SGOT 15 U/L (15-37); SGPT 10 U/L (30-65); SODIUM 140 mmol/L (136-145); TOTAL BILIRUBIN 0.8 mg/dL (<0.1-1.0); TOTAL PROTEIN 6.4 g/dL (6.4-8.2); TROPONIN-I LEVEL <0.06 ng/mL (<0.06)
[2018-11-26 15:44] VITALS: BP 132/82
== END 2018-11-26 15:44 | disposition home or self-care (01) ==
LOC: M.ERS 13:10
PROVIDERS: Personal Emergency Response Attendant
DX: R42 Dizziness and giddiness (principal); Z90.49 Acquired absence of other specified parts of digestive tract; Z88.0 Allergy status to penicillin; Z88.1 Allergy status to other antibiotic agents; Z88.5 Allergy status to narcotic agent; Z88.8 Allergy status to other drugs, medicaments and biological substances

== ENCOUNTER 2018-12-26 16:15 | Emergency (ER) | payer OTHER ==
[~2018-12-26] VITALS: Ht 160 cm; Wt 112.5 kg
[~2018-12-26 16:15] MED LIST changes: +ACETAMINOPHEN-1 EAC1 PO; +ACID REDUCER20 M1 PO; +ADVAIR HFA 230M12 GM INH; +HYDROCHLOROTH12.5 M1 PO; +HYDROXYZINE HCL25 M2 PO; +MOBIC7.5 MG PO; +NEURONTIN 300300 M1 PO; +PROVIDA OB CAP1 EACH PO; +SPRINTEC1 EACH PO; +SYNTHROID100 MC1 PO
[2018-12-26 16:44] LABS: ABSOLUTE LYMPHOCYTES 1.9 thou/uL (0.8-5.3); ABSOLUTE MONOCYTES 0.5 thou/uL (0.0-1.2); ABSOLUTE NEUTROPHILS 6.2 thou/uL (1.6-8.1); BASOPHILS 0.5 %; EOSINOPHILS 0.5 %; HEMATOCRIT 32.1 % (37.0-47.0); HEMOGLOBIN 10.9 gm/dL (12.0-15.0); LYMPHOCYTES 21.9 %; MCH 31.5 pg (26.0-34.0); MCHC 33.8 g/dL (28.0-37.0); MCV 93.1 fL (80.0-100.0); MPV 8.1 fl. (7.2-11.1); NUCLEATED RBCS 0 /100WBC; PLATELET COUNT* 230 thou/uL (150-400); POLYS 71.1 %; RBC 3.45 mil/uL (4.20-5.00); RDW-CV 17.2 % (10.5-14.5); WBC 8.7 thou/uL (4.0-11.0)
[2018-12-26 17:01] LABS: ALBUMIN 3.3 g/dL (3.4-5.0); ALKALINE PHOSPHATASE 79 U/L (46-116); ANION GAP 9 mmol/L (7-16); BUN 10 mg/dL (7-18); CALCIUM 9.1 mg/dL (8.5-10.1); CHLORIDE 103 mmol/L (98-107); CO2 30 mmol/L (21-32); CREATININE 0.8 mg/dL (0.6-1.3); GLUCOSE 102 mg/dL (70-99); POTASSIUM 3.6 mmol/L (3.5-5.1); SGOT 16 U/L (15-37); SGPT 14 U/L (30-65); SODIUM 142 mmol/L (136-145); TOTAL BILIRUBIN 1.1 mg/dL (<0.1-1.0); TOTAL PROTEIN 6.8 g/dL (6.4-8.2); TROPONIN-I LEVEL <0.06 ng/mL (<0.06)
[2018-12-26 17:16] LABS: URINE BLOOD NEGATIVE (Negative); URINE CLARITY CLEAR; URINE COLOR YELLOW; URINE GLUCOSE-RANDOM NEGATIVE (Negative); URINE KETONES TRACE (Negative); URINE LEUKOCYTES-REFLEX 1+ (Negative); URINE NITRITE-REFLEX NEGATIVE (Negative); URINE PROTEIN 1+ (Negative); URINE SPECIFIC GRAVITY 1.025 (1.005-1.030)
[2018-12-26 17:29] LABS: BACTERIA-REFLEX >30 Many /HPF (None Seen); CASTS None Seen /LPF (None Seen); CRYSTALS None Seen /LPF (None Seen); ICTOTEST (BILI CONFIRMATORY) Negative (Negative); SQUAMOUS 0-3 Few /LPF (0-3); URINE BILIRUBIN 1+ (Negative); URINE RBC None Seen /HPF (0-2); URINE WBC-REFLEX >25 Many /HPF (0-5)
[2018-12-26] MEDS ORDERED: ONDANSETRON HCL4 M2 PO (17:59)
[2018-12-26] MEDS ORDERED: BACTRIM DS TAB1 EACH PO (17:59)
[2018-12-26 18:17] VITALS: BP 104/54
--- NOTE | 2018-12-27 12:31 | EKG ---
[place] [address] ELECTROCARDIOGRAM REPORT Name: MILLIE RENE Room: [facility]#: [id number] Admission: 12/26/18 Attend Phys: Discharge: 12/26/18 Date of : 83 Report #: [id number] THIS REPORT FOR: //name// [facility] ED Test Date: 2018-12-26 Test Time: 16:20:18 Pat Name: MILLIE RENE Department: Room: Gender: F Bag Sealer: CARMELO : 1985 Requested By: Mica Mckeon Order Number: [id number] MD: Evan Morales Measurements Intervals [place] Rate: 100 P: 37 PA: 186 QRS: 15 QRSD: 87 T: 3 QT: 315 QTc: 407 Interpretive Statements Sinus tachycardia Borderline T abnormalities, inferior leads Baseline wander in lead(s) II,III,aVL,aVF,V2 Compared to ECG 10/16/2018 12:22:50 T-wave abnormality now present Sinus rhythm no longer present Electronically Signed On 12-27-2018 12:30:49 CDT by Evan Morales [email or web address] <ELECTRONICALLY SIGNED> By: Evan Morales MD, FACC 12/27/18 1230 1620 1620 Evan Morales MD, FACC /EPI
== END 2018-12-26 18:18 | disposition home or self-care (01) ==
LOC: M.ERS 16:15
PROVIDERS: Physician Assistant
DX: N39.0 Urinary tract infection, site not specified (principal); R07.89 Other chest pain; Z88.8 Allergy status to other drugs, medicaments and biological substances; Z88.0 Allergy status to penicillin; Z88.1 Allergy status to other antibiotic agents; Z88.5 Allergy status to narcotic agent; Z90.49 Acquired absence of other specified parts of digestive tract; Z90.89 Acquired absence of other organs

== ENCOUNTER 2019-01-24 17:23 | Emergency (ER) | payer OTHER ==
[~2019-01-24] VITALS: Ht 157.5 cm; Wt 112.0 kg
[2019-01-24 17:55] LABS: ABSOLUTE EOSINOPHILS 0.1 thou/uL (0.0-0.7); ABSOLUTE LYMPHOCYTES 1.6 thou/uL (0.8-5.3); ABSOLUTE MONOCYTES 0.4 thou/uL (0.0-1.2); ABSOLUTE NEUTROPHILS 4.6 thou/uL (1.6-8.1); BASOPHILS 0.7 %; EOSINOPHILS 0.9 %; HEMATOCRIT 28.1 % (37.0-47.0); HEMOGLOBIN 9.7 gm/dL (12.0-15.0); LYMPHOCYTES 23.7 %; MCH 32.9 pg (26.0-34.0); MCHC 34.3 g/dL (28.0-37.0); MCV 95.7 fL (80.0-100.0); MONOCYTES 6.3 %; MPV 7.9 fl. (7.2-11.1); NUCLEATED RBCS 0 /100WBC; PLATELET COUNT* 241 thou/uL (150-400); POLYS 68.4 %; RBC 2.94 mil/uL (4.20-5.00); RDW-CV 17.9 % (10.5-14.5); WBC 6.8 thou/uL (4.0-11.0)
[2019-01-24 18:02] LABS: ANION GAP 8 mmol/L (7-16); BUN 8 mg/dL (7-18); CALCIUM 8.6 mg/dL (8.5-10.1); CHLORIDE 102 mmol/L (98-107); CO2 30 mmol/L (21-32); CREATININE 0.8 mg/dL (0.6-1.3); GLUCOSE 118 mg/dL (70-99); POTASSIUM 3.5 mmol/L (3.5-5.1); SODIUM 140 mmol/L (136-145)
[2019-01-24 18:11] LABS: ALBUMIN 3.3 g/dL (3.4-5.0); ALKALINE PHOSPHATASE 66 U/L (46-116); SGOT 22 U/L (15-37); SGPT 26 U/L (30-65); TOTAL BILIRUBIN 0.8 mg/dL (<0.1-1.0); TOTAL PROTEIN 6.4 g/dL (6.4-8.2); TROPONIN-I LEVEL <0.06 ng/mL (<0.06)
[2019-01-24 18:47] LABS: URINE BILIRUBIN NEGATIVE (Negative); URINE BLOOD NEGATIVE (Negative); URINE CLARITY CLEAR; URINE COLOR YELLOW; URINE GLUCOSE-RANDOM NEGATIVE (Negative); URINE KETONES NEGATIVE (Negative); URINE LEUKOCYTES-REFLEX 1+ (Negative); URINE NITRITE-REFLEX NEGATIVE (Negative); URINE PROTEIN NEGATIVE (Negative); URINE SPECIFIC GRAVITY <= 1.005 (1.005-1.030); URINE UROBILINOGEN 0.2 E.U./dl (0.2-1.0)
[2019-01-24 19:00] LABS: BACTERIA-REFLEX None Seen /HPF (None Seen); CASTS None Seen /LPF (None Seen); CRYSTALS None Seen /LPF (None Seen); SQUAMOUS 0-3 Few /LPF (0-3); URINE RBC None Seen /HPF (0-2); URINE WBC-REFLEX None Seen /HPF (0-5)
[2019-01-24 19:32] VITALS: BP 114/68
--- NOTE | 2019-01-27 12:58 | EKG ---
[place] [address] ELECTROCARDIOGRAM REPORT Name: RENEMILLIE Room: [facility]#: [id number] Admission: 01/24/19 Attend Phys: Discharge: 01/24/19 Date of : 83 Report #: [id number] THIS REPORT FOR: //name// [facility] ED Test Date: 2019-01-24 Test Time: 17:50:02 Pat Name: MILLIE RENE Department: Room: Gender: F Chemist Physical: [place] : 1985 Requested By: Asa Riggins Order Number: [id number] MD: Stepan Wylie Measurements Intervals [place] Rate: 81 P: 20 MT: 140 QRS: 18 QRSD: 91 T: 9 QT: 401 QTc: 466 Interpretive Statements Sinus rhythm Compared to ECG 12/26/2018 16:20:18 Sinus tachycardia no longer present Electronically Signed On 01-27-2019 12:58:21 CDT by Stepan Wylie [email or web address] <ELECTRONICALLY SIGNED> By: Stepan Wylie MD, [facility] 01/27/19 1258 1750 49 Stepan Wylie MD, FACC /EPI
== END 2019-01-24 19:33 | disposition home or self-care (01) ==
LOC: M.ERS 17:23
PROVIDERS: Nurse Practitioner Family
DX: D64.9 Anemia, unspecified (principal); M25.571 Pain in right ankle and joints of right foot; M79.7 Fibromyalgia; Z88.8 Allergy status to other drugs, medicaments and biological substances; Z88.0 Allergy status to penicillin; Z88.1 Allergy status to other antibiotic agents; Z88.5 Allergy status to narcotic agent; Z90.49 Acquired absence of other specified parts of digestive tract; Z90.89 Acquired absence of other organs

== ENCOUNTER 2019-05-15 08:04 | Emergency (ER) | payer OTHER ==
[~2019-05-15] VITALS: Ht 160 cm; Wt 100.2 kg
[2019-05-15 08:17] VITALS: BP 111/72
[2019-05-15] MEDS ORDERED: ZOLOFT100 MG PO (08:19)
[2019-05-15] MEDS ORDERED: GABAPENTIN 100100 MG PO (08:19)
[2019-05-15] MEDS ORDERED: TRAMADOL 50 MG50 MG PO (08:26)
== END 2019-05-15 08:30 | disposition home or self-care (01) ==
LOC: M.ERS 08:04
DX: R60.0 Localized edema (principal); M79.7 Fibromyalgia; Z88.8 Allergy status to other drugs, medicaments and biological substances; Z88.0 Allergy status to penicillin; Z88.5 Allergy status to narcotic agent; Z90.49 Acquired absence of other specified parts of digestive tract; Z90.89 Acquired absence of other organs

== ENCOUNTER 2019-07-04 16:17 | Emergency (ER) | payer OTHER ==
[~2019-07-04] VITALS: Ht 160 cm; Wt 88.5 kg
[~2019-07-04 16:17] MED LIST changes: +GABAPENTIN 100100 MG PO; +LEVOTHYROXINE300 MCG PO; -SYNTHROID100 MC1 PO; +ZOLOFT100 MG PO
[2019-07-04 17:41] VITALS: BP 141/85
== END 2019-07-04 17:41 | disposition home or self-care (01) ==
LOC: M.ERS 16:17
DX: S60.222A Contusion of left hand, initial encounter (principal); M79.7 Fibromyalgia; Z90.49 Acquired absence of other specified parts of digestive tract; Z88.0 Allergy status to penicillin; Z88.6 Allergy status to analgesic agent; Z88.8 Allergy status to other drugs, medicaments and biological substances; X58.XXXA Exposure to other specified factors, initial encounter; Y93.89 Activity, other specified; Y92.89 Other specified places as the place of occurrence of the external cause; Y99.8 Other external cause status

== ENCOUNTER 2019-07-09 08:07 | Emergency (ER) | payer OTHER ==
[~2019-07-09] VITALS: Ht 157.5 cm; Wt 95.7 kg
[2019-07-09] MEDS ORDERED: VENTOLIN HFA 1818 GM INH (08:32)
[2019-07-09] MEDS ORDERED: PREDNISONE 20 M20 M1 PO (08:32)
[2019-07-09 09:06] LABS: INFLUENZA A ANTIGEN Negative (Negative); INFLUENZA B ANTIGEN Negative (Negative)
[2019-07-09 09:23] VITALS: BP 100/34
--- NOTE | 2019-07-09 13:58 | EKG ---
[place] [address] ELECTROCARDIOGRAM REPORT Name: EDGARDMILLIE Room: [facility]#: [id number] Admission: 07/09/19 Attend Phys: Discharge: 07/09/19 Date of : 83 Report #: [id number] THIS REPORT FOR: //name// [facility] ED Test Date: 2019-07-09 Test Time: 08:24:15 Pat Name: MILLIE RENE Department: Room: Gender: F Admissions Specialist: : 1985 Requested By: Scott Lubin Order Number: [id number] MD: Ortiz Mills Measurements Intervals [place] Rate: 71 P: -10 [place]: 259 QRS: 39 QRSD: 110 T: 40 QT: 405 QTc: 441 Interpretive Statements Sinus rhythm Compared to ECG 01/24/2019 17:50:02 No significant changes noted Electronically Signed On 07-09-2019 13:58:21 [employer] by Ortiz Mills [email or web address] <ELECTRONICALLY SIGNED> By: Ortiz Mills MD, [facility] 07/09/19 1358 0824 08 Ortiz Mills MD, FACC /EPI
== END 2019-07-09 09:29 | disposition home or self-care (01) ==
LOC: M.ERS 08:07
PROVIDERS: Family Medicine
DX: J06.9 Acute upper respiratory infection, unspecified (principal); M79.7 Fibromyalgia; G35 Multiple sclerosis; Z88.1 Allergy status to other antibiotic agents; Z88.0 Allergy status to penicillin; Z88.8 Allergy status to other drugs, medicaments and biological substances; Z90.49 Acquired absence of other specified parts of digestive tract; Z98.890 Other specified postprocedural states

== ENCOUNTER 2020-01-02 13:21 | Emergency (ER) | payer MEDICARE, OTHER, MEDICAID ==
[~2020-01-02] VITALS: Ht 160 cm; Wt 107.0 kg
[2020-01-02] MEDS ORDERED: LASIX 40 MG TAB40 MG PO (13:37)
[2020-01-02 13:40] LABS: URINE BILIRUBIN NEGATIVE (Negative); URINE BLOOD NEGATIVE (Negative); URINE CLARITY CLEAR; URINE COLOR YELLOW; URINE GLUCOSE-RANDOM NEGATIVE (Negative); URINE KETONES NEGATIVE (Negative); URINE LEUKOCYTES NEGATIVE (Negative); URINE NITRITE NEGATIVE (Negative); URINE PROTEIN NEGATIVE (Negative)
[2020-01-02 13:49] LABS: ABSOLUTE EOSINOPHILS 0.1 thou/uL (0.0-0.7); ABSOLUTE LYMPHOCYTES 1.6 thou/uL (0.8-5.3); ABSOLUTE MONOCYTES 0.5 thou/uL (0.0-1.2); ABSOLUTE NEUTROPHILS 3.9 thou/uL (1.6-8.1); BASOPHILS 0.8 %; EOSINOPHILS 1.6 %; HEMATOCRIT 36.9 % (37.0-47.0); HEMOGLOBIN 12.9 gm/dL (12.0-15.0); LYMPHOCYTES 25.5 %; MCH 31.8 pg (26.0-34.0); MCHC 34.9 g/dL (28.0-37.0); MCV 91.1 fL (80.0-100.0); MONOCYTES 8.7 %; MPV 8.3 fl. (7.2-11.1); NUCLEATED RBCS 0 /100WBC; PLATELET COUNT* 209 thou/uL (150-400); POLYS 63.4 %; RBC 4.05 mil/uL (4.20-5.00); RDW-CV 13.5 % (10.5-14.5); WBC 6.2 thou/uL (4.0-11.0)
[2020-01-02 14:02] LABS: CALCIUM 8.3 mg/dL (8.5-10.1); CREATININE 0.8 mg/dL (0.6-1.3); POTASSIUM 3.5 mmol/L (3.5-5.1)
[2020-01-02 14:07] LABS: ALBUMIN 3.3 g/dL (3.4-5.0); TOTAL BILIRUBIN 0.5 mg/dL (<0.1-1.0); TOTAL PROTEIN 6.9 g/dL (6.4-8.2)
[2020-01-02] MEDS ORDERED: ONDANSETRON ODT4 MG PO (15:13)
[2020-01-02] MEDS ORDERED: NORCO 5-325 TA1 EAC1 PO (15:13)
[2020-01-02 15:37] VITALS: BP 106/56
== END 2020-01-02 15:37 | disposition home or self-care (01) ==
LOC: M.ERS 13:21
PROVIDERS: Physician Assistant
DX: R10.31 Right lower quadrant pain (principal); R11.2 Nausea with vomiting, unspecified; M79.7 Fibromyalgia; G35 Multiple sclerosis; Z88.0 Allergy status to penicillin; Z88.1 Allergy status to other antibiotic agents; Z88.8 Allergy status to other drugs, medicaments and biological substances; Z90.49 Acquired absence of other specified parts of digestive tract

== ENCOUNTER 2020-03-17 10:36 | Emergency (ER) | payer MEDICARE, OTHER, MEDICAID ==
[~2020-03-17] VITALS: Ht 160 cm; Wt 116.1 kg
[~2020-03-17 10:36] MED LIST changes: +LASIX 40 MG TAB40 MG PO; +NORCO 5-325 TA1 EAC1 PO; +ONDANSETRON ODT4 MG PO
[2020-03-17 11:51] LABS: ABSOLUTE EOSINOPHILS 0.1 thou/uL (0.0-0.7); ABSOLUTE LYMPHOCYTES 1.6 thou/uL (0.8-5.3); ABSOLUTE MONOCYTES 0.4 thou/uL (0.0-1.2); ABSOLUTE NEUTROPHILS 2.3 thou/uL (1.6-8.1); BASOPHILS 0.6 %; EOSINOPHILS 1.4 %; HEMATOCRIT 35.6 % (37.0-47.0); HEMOGLOBIN 12.6 gm/dL (12.0-15.0); LYMPHOCYTES 35.9 %; MCH 31.7 pg (26.0-34.0); MCHC 35.5 g/dL (28.0-37.0); MCV 89.2 fL (80.0-100.0); MONOCYTES 9.7 %; MPV 8.4 fl. (7.2-11.1); NUCLEATED RBCS 0 /100WBC; PLATELET COUNT* 185 thou/uL (150-400); POLYS 52.4 %; RBC 3.99 mil/uL (4.20-5.00); RDW-CV 12.5 % (10.5-14.5); WBC 4.4 thou/uL (4.0-11.0)
[2020-03-17 11:58] LABS: CALCIUM 8.5 mg/dL (8.5-10.1); POTASSIUM 4.2 mmol/L (3.5-5.1)
[2020-03-17 12:10] LABS: ALBUMIN 3.3 g/dL (3.4-5.0); TOTAL BILIRUBIN 0.7 mg/dL (<0.1-1.0); TOTAL PROTEIN 6.8 g/dL (6.4-8.2)
[2020-03-17 12:58] VITALS: BP 155/99
== END 2020-03-17 13:00 | disposition home or self-care (01) ==
LOC: M.ERS 10:36
PROVIDERS: Personal Emergency Response Attendant
DX: S60.212A Contusion of left wrist, initial encounter (principal); S60.222A Contusion of left hand, initial encounter; M79.605 Pain in left leg; M79.604 Pain in right leg; R60.0 Localized edema; M79.7 Fibromyalgia; Z90.49 Acquired absence of other specified parts of digestive tract; Z88.0 Allergy status to penicillin; Z88.1 Allergy status to other antibiotic agents; Z88.6 Allergy status to analgesic agent; Z88.8 Allergy status to other drugs, medicaments and biological substances; X58.XXXA Exposure to other specified factors, initial encounter; Y93.89 Activity, other specified; Y92.89 Other specified places as the place of occurrence of the external cause; Y99.8 Other external cause status

== ENCOUNTER → 2020-04-20 | Outpatient (CLI) | payer MEDICARE ==
--- NOTE | 2020-05-10 08:00 | SLEEP ---
[address] [address] SLEEP STUDY REPORT Name: MILLIE RENE Room: [facility]#: [id number] Admission: 04/20/20 Attend Phys: Jermaine Rucker DO Discharge: Date of : 83 Report #: [id number] THIS REPORT FOR: //name// CC: Jermaine Rucker This study has been reviewed in its entirety by a board certified sleep specialist DATE OF SERVICE: 04/20/2020 SLEEP STUDY INDICATION FOR SLEEP STUDY: History of obstructive sleep apnea with recent significant 200-pound weight loss after weight loss surgery. INTERPRETATION: Total duration of the study is 461 minutes out of which she was asleep for 256 minutes with an overall sleep efficiency significantly decreased to 55.5%. Sleep onset initially occurred around 7-8 minutes after lying down in bed and REM onset was 156 minutes after sleep onset. N1 sleep duration was 3.1%, N2 duration was 42%, N3 duration was 38%, and REM duration was 16%. Mean heart rate during the sleep study was 63. Periodic limb movement index was normal at 5.9. Arousal index was only mildly elevated to 13.6. Body position data indicates the patient was lying supine for 169 minutes. Rest of the time, the patient was in other positions. We did record 22 hypopneas and 1 central apnea in addition to 18 respiratory effort-related arousals during this sleep study. The overall apnea-hypopnea index was mildly elevated to 5.4. The patient's events were more common in REM sleep. REM apnea-hypopnea index was elevated to 18.8. There was no obvious positional variation. More events were recorded in the supine position, but the patient also was in REM sleep at that point. O2 saturation was mostly maintained at or above 90%. The patient spent 2.1 minutes below an O2 saturation of 90%. IMPRESSION: Mild obstructive sleep apnea with an apnea-hypopnea index of 5.4. O2 saturation was adequately maintained during the sleep study. RECOMMENDATIONS: According to the history provided, the patient has a history of obstructive sleep apnea and has been on CPAP therapy. During the sleep study, mild sleep apnea is detected. It appears likely to me that the patient will still benefit from continuing with CPAP therapy; however, reduction in the patient's current CPAP pressures may be possible. Options to evaluate this further include placing the patient on a CPAP auto titrated device and then obtaining memory card data from the device and evaluating further. Alternately, a repeat sleep study for a positive airway pressure titration can also be performed. Clinical correlation is advised. Recommend driving or other [address] [place] [address] SLEEP STUDY REPORT Name: RENEMILLIE Room: [facility]#: [id number] Admission: 04/20/20 Attend Phys: Jermaine Rucker DO Discharge: Date of : 83 Report #: [id number] activities requiring vigilance if drowsy. This entire sleep study was reviewed by board certified sleep physician. <ELECTRONICALLY SIGNED> By: Keith Rodas MD 05/10/20799 16 2035Ajosep Rodas MD /nt
== END ==
LOC: M.SLEEPLAB 19:49
PROVIDERS: ATTEND Family Medicine
DX: G47.33 Obstructive sleep apnea (adult) (pediatric) (principal)

== ENCOUNTER → 2020-04-25 | Outpatient (CLI) | payer MEDICARE, MEDICAID | LOC: M.MRI 14:30 | PROVIDERS: ATTEND Family Medicine | DX: M50.221 Other cervical disc displacement at C4-C5 level (principal); M51.24 Other intervertebral disc displacement, thoracic region; M62.81 Muscle weakness (generalized); Z87.81 Personal history of (healed) traumatic fracture ==

== ENCOUNTER → 2020-05-12 | Outpatient (CLI) | payer MEDICARE, MEDICAID | LOC: M.MRI 05-05 07:30 | PROVIDERS: ATTEND Family Medicine | DX: G95.0 Syringomyelia and syringobulbia (principal); G44.321 Chronic post-traumatic headache, intractable ==

== ENCOUNTER 2020-08-21 13:44 | Emergency (ER) | payer MEDICARE, MEDICAID ==
[~2020-08-21] VITALS: Ht 157.5 cm; Wt 117.9 kg
[2020-08-21 14:55] LABS: ABSOLUTE BASOPHILS 0.1 thou/uL (0.0-0.2); ABSOLUTE EOSINOPHILS 0.3 thou/uL (0.0-0.7); ABSOLUTE LYMPHOCYTES 1.8 thou/uL (0.8-5.3); ABSOLUTE MONOCYTES 0.8 thou/uL (0.0-1.2); ABSOLUTE NEUTROPHILS 5.3 thou/uL (1.6-8.1); BASOPHILS 0.9 %; EOSINOPHILS 3.7 %; HEMATOCRIT 38.7 % (37.0-47.0); HEMOGLOBIN 13.4 gm/dL (12.0-15.0); LYMPHOCYTES 21.9 %; MCH 30.4 pg (26.0-34.0); MCHC 34.7 g/dL (28.0-37.0); MCV 87.6 fL (80.0-100.0); MONOCYTES 9.8 %; MPV 8.4 fl. (7.2-11.1); NUCLEATED RBCS 0 /100WBC; PLATELET COUNT* 261 thou/uL (150-400); POLYS 63.7 %; RBC 4.42 mil/uL (4.20-5.00); WBC 8.4 thou/uL (4.0-11.0)
[2020-08-21 15:02] LABS: URINE BILIRUBIN NEGATIVE (Negative); URINE BLOOD NEGATIVE (Negative); URINE CLARITY CLEAR; URINE COLOR YELLOW; URINE GLUCOSE-RANDOM NEGATIVE (Negative); URINE KETONES NEGATIVE (Negative); URINE LEUKOCYTES-REFLEX NEGATIVE (Negative); URINE NITRITE-REFLEX NEGATIVE (Negative); URINE PROTEIN NEGATIVE (Negative); URINE SPECIFIC GRAVITY 1.015 (1.005-1.030)
[2020-08-21 15:10] LABS: CREATININE 0.7 mg/dL (0.6-1.3); POTASSIUM 3.2 mmol/L (3.5-5.1)
[2020-08-21 15:14] LABS: ALBUMIN 3.6 g/dL (3.4-5.0); TOTAL BILIRUBIN 0.7 mg/dL (<0.1-1.0); TOTAL PROTEIN 7.4 g/dL (6.4-8.2)
[2020-08-21 16:00] VITALS: BP 130/72
== END 2020-08-21 16:00 | disposition home or self-care (01) ==
LOC: M.ERS 13:44
PROVIDERS: Physician Assistant
DX: M96.89 Other intraoperative and postprocedural complications and disorders of the musculoskeletal system (principal); M79.651 Pain in right thigh; E87.6 Hypokalemia; M79.661 Pain in right lower leg; G35 Multiple sclerosis; M79.7 Fibromyalgia; Z88.1 Allergy status to other antibiotic agents; Z88.5 Allergy status to narcotic agent; Z88.0 Allergy status to penicillin; Z88.8 Allergy status to other drugs, medicaments and biological substances; Z90.49 Acquired absence of other specified parts of digestive tract; Z90.89 Acquired absence of other organs; Y83.8 Other surgical procedures as the cause of abnormal reaction of the patient, or of later complication, without mention of misadventure at the time of the procedure; Y82.8 Other medical devices associated with adverse incidents

== ENCOUNTER → 2021-08-16 | Outpatient (CLI) | payer MEDICARE, MEDICAID | LOC: M.LAB 08:02 | PROVIDERS: ATTEND Orthopaedic Surgery | DX: Z01.812 Encounter for preprocedural laboratory examination (principal); Z20.822 Contact with and (suspected) exposure to COVID-19; E87.6 Hypokalemia ==